=== PATIENT | female | born 1990 | race American Indian/Alaskan Native ===

== ENCOUNTER 2016-11-27 22:37 | Emergency (ER) | payer MEDICAID ==
[2016-11-28 00:25] LABS: Basophils % (Auto) 0.2 % (0.0-1.8); Eosinophils % (Auto) 0.5 % (0.0-4.3); Hematocrit 29.1 % (30.3-42.9); Hemoglobin 9.8 gm/dl (10.1-14.3); Mean Corpuscular HGB Conc 34 % (30-34); Mean Corpuscular Hemoglobin 26 pg (28-32); Mean Corpuscular Volume 77 fl (79-97); Platelet Count 227 K/mm3 (140-440); Red Blood Count 3.76 M/mm3 (3.65-5.03); Red Cell Distribution Width 16.6 % (13.2-15.2)
[2016-11-28 01:42] LABS: Bilirubin,Urine NEG (Negative); Blood,Urine NEG (Negative); Ketones,Urine TR mg/dL (Negative); Leukocyte Esterase,Urine NEG (Negative); Nitrite,Urine NEG (Negative); Protein,Urine <15 mg/dL mg/dL (Negative); RBC,Urine < 1.0 /HPF (0.0-6.0); Urobilinogen,Urine < 2.0 mg/dL (<2.0)
--- NOTE | 2016-11-28 02:37 | Ultrasound Report ---
FINAL REPORT EXAM: US OB \T\gt; = 14 WK FETUS ADD GEST HISTORY: ABd pain with preg COMPARISON: None of this . TECHNIQUE: Several real-time grayscale and color Doppler images were obtained. Transvaginal and transabdominal exam. FINDINGS: Single live IUP. Estimated gestational age 17 weeks 4 days. Estimated delivery date May 04, 2017. heart rate 142 beats per minute. Estimated weight 212 grams. BPD 3.5 centimeters 16 weeks 6 days. Head circumference 14.1 centimeters 17 weeks 3 days. Abdominal circumference 13.0 centimeters 18 weeks 4 days. Femoral length 2.4 centimeter 17 weeks 2 days. position breech. Placenta location anterior. No placenta previa. The cervix is closed and measures 4.4 centimeters in length. Visualized heart, stomach, urinary bladder, kidneys are grossly unremarkable. Spinal cord and heart are not well visualized. There is a three-vessel umbilical cord. Abdominal insertion not well visualized. IMPRESSION: Single live IUP. Estimated gestational age 17 weeks 4 days. Estimated delivery date May 04, 2017. No gross or placental abnormality. Some portions of the anatomy are not well visualized on today's study.
[2016-11-28 08:07] VITALS: BP 112/40
--- NOTE | 2016-11-28 08:37 | Emergency Department Report ---
ED Female HPI - General Chief complaint: Abdominal Pain Stated complaint: ABDOMINAL PAIN/BACK Time Seen by Provider: 11/28/16 08:28 Source: patient Mode of arrival: Ambulatory Limitations: No Limitations - History of Present Illness Initial comments: This is a 26-year-old female 17 weeks' , and was abdominal pain and cramping in nature lasting for 2-3 days denied any vaginal bleeding stated. He is moving well no headache no nausea no vomiting no fever. MD Complaint: pelvic pain -: days(s) - Related Data Sexually active: Yes : 3 Para: 2 A: 0 Previous Rx's Medication Instructions Recorded Last Taken Type Docusate Sodium [Colace] 100 mg PO BID PRN #60 capsule 10/07/15 Unknown Rx Ibuprofen [Motrin 800 MG tab] 800 mg PO Q6H PRN #50 tablet 10/07/15 Unknown Rx Oxycodone HCl/Acetaminophen 1 each PO Q6HR PRN #50 tablet 10/07/15 Unknown Rx [Percocet 7.5/325 mg] Allergies Allergy/AdvReac Type Severity Reaction Status Date / Time No Known Allergies Allergy Verified 10/05/15 06:14 ED Review of Systems ROS: Stated complaint: ABDOMINAL PAIN/BACK Other details as noted in HPI Comment: All other systems reviewed and negative Constitutional: denies: chills, fever Respiratory: denies: cough, shortness of breath Cardiovascular: denies: chest pain, palpitations, dyspnea on exertion Gastrointestinal: abdominal pain. denies: nausea, vomiting, diarrhea, constipation, hematemesis, melena, hematochezia Genitourinary: denies: urgency, frequency Musculoskeletal: denies: back pain ED Past Medical Hx - Past Medical History Previous Medical History?: Yes Hx Hypertension: No Hx Congestive Heart Failure: No Hx Diabetes: No Hx Deep Vein Thrombosis: No Hx Renal Disease: No Hx Sickle Cell Disease: No Hx Seizures: No Hx Asthma: No Hx COPD: No Hx HIV: No Additional medical history: anemia - Surgical History Past Surgical History?: Yes Additional Surgical History: C section x2 - Social History Smoking Status: Never Smoker Substance Use Type: None - Medications Home Medications: Home Medications Medication Instructions Recorded Confirmed Last Taken Type Docusate Sodium [Colace] 100 mg PO BID PRN #60 capsule 10/07/15 Unknown Rx Ibuprofen [Motrin 800 MG tab] 800 mg PO Q6H PRN #50 tablet 10/07/15 Unknown Rx Oxycodone HCl/Acetaminophen 1 each PO Q6HR PRN #50 tablet 10/07/15 Unknown Rx [Percocet 7.5/325 mg] ED Physical Exam - General Limitations: No Limitations General appearance: alert, in no apparent distress - Eye Eye exam: Present: normal appearance - ENT ENT exam: Present: normal exam - Neck Neck exam: Present: normal inspection. Absent: tenderness, meningismus - Respiratory Respiratory exam: Present: normal lung sounds bilaterally. Absent: respiratory distress, wheezes, rales - Cardiovascular Cardiovascular Exam: Present: regular rate, normal rhythm, normal heart sounds - GI/Abdominal GI/Abdominal exam: Present: soft, other (gravid uterus). Absent: distended, tenderness, guarding, rebound, rigid, normal bowel sounds - Extremities Exam Extremities exam: Absent: pedal edema - Back Exam Back exam: Present: normal inspection. Absent: CVA tenderness (R), CVA tenderness (L) - Neurological Exam Neurological exam: Present: alert, oriented X3, CN II-XII intact - Skin Skin exam: Present: warm, normal color ED Course Vital Signs 11/27/16 11/28/16 11/28/16 23:32 02:41 07:06 Temperature 98.2 F 97.9 F Pulse Rate 87 97 H Respiratory 18 18 Rate Blood Pressure 132/80 138/73 O2 Sat by Pulse 100 100 99 Oximetry 11/28/16 11/28/16 11/28/16 07:10 07:16 07:20 Temperature Pulse Rate 88 87 87 Respiratory 19 17 17 Rate Blood Pressure 112/40 112/40 112/40 O2 Sat by Pulse 99 100 Oximetry 11/28/16 11/28/16 11/28/16 07:26 07:30 07:36 Temperature Pulse Rate 79 74 78 Respiratory 10 L 9 L 13 Rate Blood Pressure 112/40 112/40 112/40 O2 Sat by Pulse 100 99 99 Oximetry 11/28/16 11/28/16 11/28/16 07:40 07:46 07:50 Temperature Pulse Rate 78 77 81 Respiratory 14 13 13 Rate Blood Pressure 112/40 112/40 112/40 O2 Sat by Pulse 99 99 99 Oximetry - Reevaluation(s) Reevaluation #1: 11/28/16 08:36 Patient stated that she is feeling better she does not have any abdominal pain no vaginal bleeding. We'll discharge home to follow up with her OB in the next 2-3 days ED Medical Decision Making - Lab Data Result diagrams: 11/28/16 00:01 Critical care attestation.: If time is entered above; I have spent that time in minutes in the direct care of this critically ill patient, excluding procedure time. ED Disposition Clinical Impression: Abdominal pain affecting Disposition: DC- TO HOME OR SELFCARE Is pt being admited?: No Condition: Stable Instructions: Abdominal Pain (ED), Abdominal Pain in (ED) Referrals: PRIMARY CARE, [Primary Care Provider] - 3-5 Days Forms: Work/School Release Form(ED)
== END 2016-11-28 09:07 | disposition home or self-care (01) ==
LOC: ED 22:37
DX: O26.892 Other specified pregnancy related conditions, second trimester (principal); R10.9 Unspecified abdominal pain; Z3A.17 17 weeks gestation of pregnancy
CPT/HCPCS: 36415; 76805; 76817; 81001; 84702; 85025

== ENCOUNTER 2017-02-14 17:29 | Outpatient (CLI) | payer MEDICAID ==
[2017-02-14 18:59] VITALS: BP 117/58
[2017-02-14] MEDS ORDERED: LACTATED RINGERS 1,000 ML IV ONE (19:21)
[2017-02-14 19:48] LABS: Bilirubin,Urine NEG (Negative); Blood,Urine NEG (Negative); Ketones,Urine 20 mg/dL (Negative); Leukocyte Esterase,Urine NEG (Negative); Nitrite,Urine NEG (Negative); Protein,Urine <15 mg/dL mg/dL (Negative); WBC,Urine < 1.0 /HPF (0.0-6.0)
[2017-02-14] MEDS ORDERED: BRETHINE SUB-Q ONE (20:15)
== END 2017-02-14 20:47 | disposition home or self-care (01) ==
LOC: TRG 17:29
PROVIDERS: ATTEND Obstetrics & Gynecology
DX: O47.03 False labor before 37 completed weeks of gestation, third trimester (principal); Z87.891 Personal history of nicotine dependence; Z3A.28 28 weeks gestation of pregnancy
CPT/HCPCS: 59025; 81001; 96360; 96372; J3105; J7120